=== PATIENT | male | born 1970 | race Caucasian/White ===

== ENCOUNTER → 2019-03-03 21:36 | Outpatient (CLI) | payer OTHER, SELFPAY ==
[2019-03-03 15:14] VITALS: BMI 32.8
[2019-03-03 21:50] LABS: Absolute Lymphocyte Count 2.01 X10^3/uL (0.83-4.51); Absolute Neutrophil Count 3.5 X10^3/uL (2.0-7.7); Basophil# 0.06 X10^3/uL; Eosinophil# 0.09 X10^3/uL; Eosinophils% 1.4 % (0-5); Hematocrit 48.4 % (40-54); Hemoglobin 15.9 g/dL (13.0-16.5); Lymphocyte # 2.01 X10^3/ul (4.0); Lymphocyte % 31.9 % (19-41); Mean Corp Hgb Conc 32.9 g/dL (32-36); Mean Corpuscular Hgb 29.1 pg (27.0-32.0); Mean Corpuscular Volume 88.6 fL (80-94); Mean Platelet Vol. 12.2 fl (6.2-12.0); Monocyte# 0.69 X10^3/uL; Monocyte% 10.9 % (0-10); NRBC Flagged by Analyzer 0 % (0-5); Neutrophil # 3.46 X10^3/uL (2.7-7.7); Neutrophil % 54.8 % (47-70); Platelet Count 169 K/mm3 (150-450); RBC Distribution Width CV 12.4 % (11.6-14.6); RBC Distribution Width SD 40.1 fl (35.1-43.9); Red Blood Count 5.46 M/mm3 (4.6-6.2); White Blood Count 6.3 K/mm3 (4.4-11.0)
[2019-03-03 22:12] LABS: ALB/GLOB Ratio 1.4 RATIO (0.9-2.4); AST(SGOT) 63 U/L (15-37); Alanine Aminotransfer ALT/SGPT 134 U/L (16-61); Albumin, Serum 4.2 g/dL (3.2-5.0); Alkaline Phosphatase 90 U/L (45-117); Anion Gap 2 (5-15); BUN 20 mg/dL (7-18); BUN/Creat Ratio 17.1 RATIO (10-20); CRP, High Sensitivity Cardiac 1.69 mg/L; Calcium,Total 9.2 mg/dL (8.5-10.1); Chloride 108 mmol/L (98-107); Cholesterol 123 mg/dL (200); Creatinine, Serum 1.17 mg/dL (0.70-1.30); EST Glomerular Filtration Rate 71 mL/min (>60); Est Glom Filt Rate - Afr Amer 85 mL/min (>60); Globulin 3.1 g/dL (2.2-4.2); Glucose 84 mg/dL (74-106); High Density Lipoprotein 56 mg/dL; PSA,Total - Annual Screen 0.56 ng/mL (0.00-4.00); Potassium 4.2 mmol/L (3.5-5.1); Protein, Total 7.3 g/dL (6.4-8.2); Sodium Level 140 mmol/L (136-145); Thyroid Stim Hormone (TSH) 2.39 uIU/mL (0.358-3.74); Triglycerides 53 mg/dL; Very Low Density Lipoprotein 11 mg/dL (5-40)
== END ==
PROVIDERS: Referring Provider Nurse Practitioner; Visit Provider Nurse Practitioner
DX: Z00.00 Encounter for general adult medical examination without abnormal findings (principal); R42 Dizziness and giddiness; R74.8 Abnormal levels of other serum enzymes; Z12.5 Encounter for screening for malignant neoplasm of prostate
CPT/HCPCS: 80053; 80061; 84153; 84443; 84484; 85025; 86141; G0103

== ENCOUNTER → 2019-03-14 | Outpatient (CLI) | payer OTHER, SELFPAY ==
[2019-03-14 14:14] VITALS: BMI 32.8
[2019-03-18 11:33] LABS: Testosterone Free 8.6 pg/mL (6.8-21.5)
== END | disposition home or self-care (01) ==
PROVIDERS: Referring Provider Nurse Practitioner
DX: R79.89 Other specified abnormal findings of blood chemistry (principal)
CPT/HCPCS: 84402

== ENCOUNTER → 2020-02-10 09:17 | Outpatient (CLI) | payer OTHER, SELFPAY ==
[2019-09-15 19:25] VITALS: BMI 32.1
--- NOTE | 2020-02-10 09:23 | RAD_ITS ---
STUDY: X-RAY CHEST REASON FOR EXAM: Male, 49 years old. COUGH AND SOB. PATIENT STATES HAD A FEVER A COUPLE OF DAYS AGO. TECHNIQUE: PA and lateral views of the chest. COMPARISON: None. FINDINGS: There is evidence of a infiltrations in the left lung preferably in the peripheral distribution . Pneumonitis secondary to Covid should be ruled out. Focal infiltrate is also seen in the peripheral aspect of the right mid lung. There is no demonstrated pleural abnormality. Normal size heart. Normal mediastinum and jhoan. Normal visualized pulmonary arteries. Normal visualized aortic arch and descending thoracic aorta. Normal visualized thoracic spine. Normal visualized ribs, clavicles, and shoulders. There is no demonstrated abnormality of the visualized soft tissue structures of the upper abdomen. RAD/Chest PA and Lateral IMPRESSION: Infiltration in the left lung and the preferential peripheral distribution. Focal infiltrate in the right midlung. Covid pneumonitis should be ruled out. Electronically Signed: Milton Mukherjee, at 9:56 EST , Service support ,
== END ==
LOC: MTDU 09:21 → RAD 09:24
PROVIDERS: PCP Nurse Practitioner; Referring Provider Nurse Practitioner; Visit Provider Nurse Practitioner
DX: U07.1 COVID-19 (principal); R05 Cough; R06.02 Shortness of breath; R50.9 Fever, unspecified
CPT/HCPCS: 71046; 87635; C9803; U0003

== ENCOUNTER 2020-02-10 19:36 | Emergency (ER) | payer OTHER, SELFPAY ==
[2019-09-15 19:25] VITALS: BMI 32.1
[2020-02-10 19:37] VITALS: BP 122/86; PULSE 94; RESP 18; TEMP 36; O2SAT 95; BMI 29.6
--- NOTE | 2020-02-10 20:08 | ED.VISSUMM ---
- ER Visit Summary Date of Service: 02/10/20 Chief Complaint: Shortness of breath History of Present Illness: The patient is a 49 M who presents with shortness of breath that has been getting worse over the past 2 weeks. Patient states it has been constant. Patient states his breathing is worse with exertion. Patient states he feels like he is just short of breath whenever he exerts himself. Patient states it gets better with rest. Patient also admits to some dizziness with exertion. Patient was seen at urgent care yesterday. Patient had a chest x-ray and COVID-19 PCR test done today. Patient was given a prescription for Zithromax yesterday. Patient states he has taken 2 doses of this. Patient states he was also given an albuterol inhaler which has not been helping. Physical Examination: Vital signs are stable. Patient is afebrile. Patient is in no acute distress. Patient is not hypoxic. Oral mucosa is pink and moist. Neck is supple. Trachea is midline. There is no JVD. Heart was regular rate and rhythm. Lungs are clear but diminished bilaterally. There is good respiratory effort noted. Abdomen is soft. Bowel sounds are normal. There is no tenderness. Cranial nerves II through XII are intact. There are no focal motor or sensory deficits noted. Extremities are intact. There is no calf tenderness or edema. Emergency Department Course and Treatment: Outpatient chest x-ray was reviewed. There are 2 views. There is infiltration of the left lung and a focal infiltrate in the right mid lungs. Covid pneumonitis should be ruled out. This was interpreted by the radiologist and reviewed by myself. Patient also had a COVID-19 PCR test obtained this morning. These results are still pending. Patient was given albuterol inhaler with a spacer. Patient states he was already prescribed an albuterol inhaler but did not have a spacer with it. Patient does not meet criteria for monoclonal antibody therapy. Patient was instructed to follow-up with his primary care physician in 3 to 5 days for COVID-19 results. Patient was instructed to quarantine until then. Patient was instructed return if worse in any way. Patient understood and was agreeable with the plan. All questions were answered. Disposition: Discharge home Impression: 1. Pneumonia This note was generated with [employer] dictation software. It may contain incorrect words, spelling, and punctuation that were not noted in review of the chart prior to signing ED Disposition - Plan for ED Patient: Disposition: Home or Assisted Living Diagnosis: Pneumonia Instructions: ED Pneumonia (Adult), Pending Outpatient COVID Test Referrals: Claudia Mendieta NP, [facility] [Primary Care Provider] - 3-5 Days
[2020-02-10 21:20] VITALS: O2SAT 96
== END 2020-02-10 21:23 | disposition home or self-care (01) ==
PROVIDERS: Emergency Provider Emergency Medicine; PCP Nurse Practitioner
DX: J18.9 Pneumonia, unspecified organism (principal)
CPT/HCPCS: 94664; 99282

== ENCOUNTER 2023-09-13 13:34 | Emergency (ER) | payer OTHER, SELFPAY ==
[2023-09-13 13:35] VITALS: BP 144/102; PULSE 74; RESP 16; TEMP 35.8; O2SAT 98; BMI 32.6
--- NOTE | 2023-09-13 13:46 | RAD_ITS ---
STUDY: X-RAY - RIGHT HAND REASON FOR EXAM: Male, 53 years old. Crush injury TECHNIQUE: 3 view(s) of the hand. COMPARISON: None. FINDINGS: Normal radiocarpal articulation. Normal distal radioulnar joint. Normal visualized carpal bones. Normal carpal articulations Normal carpometacarpal articulation of the thumb. Normal second through fifth carpometacarpal joints. Normal metacarpi. Normal metacarpophalangeal joint of the thumb. Normal interphalangeal joint of the thumb. Normal proximal and distal phalanges of the thumb. Normal metacarpophalangeal joints of the second through fifth fingers. Normal proximal and distal interphalangeal joints of the second through fifth fingers. Normal phalanges of the second through fifth fingers. The soft tissue structures are unremarkable. RAD/Hand Min 3 Views IMPRESSION: Normal x-ray examination of the hand. Electronically Signed: Milton Mukherjee MD at 14:15 EDT ,
--- NOTE | 2023-09-13 13:48 | EX.ED.UPPERE ---
HPI <ELEUTERIO Wright - Last Filed: 09/13/23 16:42> History of Present Illness Chief Complaint: Upper Extremity Injury Narrative Narrative: Patient presenting today with pain to the second through fifth fingers of his right hand, especially to the right third finger after it was crushed under a hot tub that he was trying to move last night. He is right-handed. PFSH <ELEUTERIO Wright - Last Filed: 09/13/23 16:42> [facility] Medical History Normal cardiac stress test Abnormal colonoscopy Bilateral carpal tunnel syndrome Fatty liver Elevated liver enzymes Anxiety Home Medications ?Medication ?Instructions ?Recorded ?Last Taken ?Type albuterol sulfate 90 mcg/actuation 2 inh inhalation 6XD PRN shortness 02/09/20 Unknown Rx aerosol inhaler (ProAir HFA) of breath or wheezing #8.5 grams levofloxacin 500 mg tablet 500 mg PO DAILY #14 tabs 02/15/20 Unknown Rx hydrocodone-acetaminophen 5-325mg 1 tab PO Q4H PRN PRN Pain 2 days 09/13/23 Unknown Rx 5mg-325mg #7 TABLETS Allergy/AdvReac Type Severity Reaction Status Date / Time No Known Allergies Allergy Verified 09/13/23 13:35 Family History Other Bleeding disorder COPD (chronic obstructive pulmonary disease) CVA (cerebral vascular accident) Colon cancer Depression Diabetes Heart disease Hypertension Myocardial infarction Thyroid disorder Surgical History Hx of LASIK History of tonsillectomy Social History Smoking Status: Never smoker ROS <ELEUTERIO Wright - Last Filed: 09/13/23 16:42> ROS ED Constitutional Constitutional ED: Denies chills or fever(s) Cardiovascular Cardiovascular: Denies chest pain Respiratory/Chest Respiratory/Chest: Denies dyspnea Musculoskeletal Musculoskeletal: Reports arthralgias Integumentary Denies Abrasions Neurologic Neurologic: Denies paresthesias EXAM <ELEUTERIO Wright - Last Filed: 09/13/23 16:42> Physical Exam Const Vital Signs: 09/13/23 13:35 09/13/23 13:37 Temperature 96.5 F L Temperature Source Temporal Pulse Rate 74 Respiratory Rate 16 Blood Pressure 144/102 H Blood Pressure Mean 116 Pulse Ox 98 Oxygen Delivery Method Room Air Room Air Positive well nourished, well developed and no apparent distress General Appearance ED: well developed HEENT Reports normocephalic and head/scalp atraumatic Mouth ED: Yes moist mucous membranes normal Eyes PERRL and EOMs intact bilaterally Neck full ROM and supple Chest Wall inspection of chest normal Resp normal respiratory effort and clear to auscultation bilaterally Cardio regular rate and regular rhythm GI soft to palpation, non-tender, non-distended and no masses Back/Spine normal ROM and normal to inspection Extremity full ROM Extremity Narrative: Swelling to the right third finger, about 50% subungual hematoma to the right third finger. Slight ecchymosis to the volar aspect of the right third distal phalange , right radial pulse 2+, good capillary refill, sensation intact. Neuro oriented x3, CN's II-XII intact bilaterally, moves all extremities, no focal motor deficits and no sensory deficits noted Sensorium / Orientation: awake and alert Psych mental status grossly normal and thought process normal Skin no rashes or lesions noted and no wounds MDM <ELEUTERIO Wright - Last Filed: 09/13/23 16:42> [facility] Narrative Medical decision making narrative: Patient presenting with pain to his right second through fifth fingers, especially the third finger after a hot tub was dropped on his finger last night while he was trying to move it. He has about 50% subungual hematoma to the right third finger. X-ray obtained, the radiologist read this as no acute findings but the attending ED physician does notice a fracture to the right third distal phalanx. Patient will be placed in a aluminum splint. RICE instructions were discussed, I did offer analgesia here, he declines. He will be given a short course of Tracy for home. discussion was made between patient and the attending, patient decided to hold off on draining the subungual hematoma. Return instructions discussed and patient discharged home in stable condition. <Dr. Alexander Hernandez DO - Last Filed: 09/13/23 15:25> [facility] Treatment and Re-Evaluation Narrative: I have personally performed a face to face assessment of the patient and have reviewed the SANDRA Note. I performed a substantive portion of the visit including all aspects of the following. My balbuena findings include: History is 53-year-old male dropped a hot tub on his finger/hand. He notes bruising and subungual hematoma to the right long finger. Exam is there is about a 50% subungual hematoma of the right long finger. There is some bruising and swelling over the volar surface as well. Neurovascular intact. Distal skin of the finger still pink. Medical Decison Making Magnapen interpretation of the plain films of the right hand is a nondisplaced distal phalanx fracture of the right long finger. AlumaFoam splint will be placed. Pain medication as needed. Ice elevate monitor the finger and return if any concerns of compartment syndrome. We talked about draining the subungual hematoma versus [id number]. Patient would prefer to wait which I think is very reasonable. He understands there may be loss of the nail. Patient to be discharged home return if worsening or concerns Discharge Plan Triage Chief Complaint: Upper Extremity Injury ED Midlevel Provider: Giovanna Marcus ED Provider: Alexander Hernandez Dx/Rx/DC Orders Clinical Impression: Finger fracture Instructions: ED Fracture, Finger, Closed Prescriptions: New hydrocodone-acetaminophen 5-325 mg tablet 1 tab PO Q4H PRN PRN (Reason: Pain) 2 Days Qty: 7 0RF No Action albuterol sulfate [ProAir HFA] 90 mcg/actuation HFA aerosol inhaler 2 inh INHALATION 6XD PRN (Reason: shortness of breath or wheezing) Qty: 8.5 3RF levofloxacin 500 mg tablet 500 mg PO DAILY Qty: 14 0RF Primary Care Provider: Claudia Mendieta NP Referrals: Terry Miller MD [Med Staff - Active Staff] - 1 Week Claudia Mendieta NP, [facility] [Primary Care Provider] - Activity Restrictions/Additional Instructions: Ice your finger off and on for 15 to 20 minutes at a time several times a day for the next few days to help with pain and swelling. Print Language: [place] Disposition Disposition: Home, Self Care Discharge Date/Time: 09/13/23 14:51
[2023-09-13 14:50] VITALS: BP 135/92; PULSE 78; RESP 16; TEMP 36.2; O2SAT 99
== END 2023-09-13 14:51 | disposition home or self-care (01) ==
PROVIDERS: Emergency Provider Emergency Medicine; PCP Nurse Practitioner; Visit Provider Emergency Medicine
DX: S62.632A Displaced fracture of distal phalanx of right middle finger, initial encounter for closed fracture (principal); S60.031A Contusion of right middle finger without damage to nail, initial encounter; W23.1XXA Caught, crushed, jammed, or pinched between stationary objects, initial encounter
CPT/HCPCS: 29130; 73130; 99283